=== PATIENT | male | born 1960 | race Caucasian/White ===

== ENCOUNTER 2024-08-03 11:59 | Inpatient (IN) | payer SELFPAY ==
[2024-08-03] VITALS (11 sets, daily range): BP systolic 134–168; BP diastolic 80–90; PULSE 62–128; RESP 16–24; TEMP 36.7–37.1; O2SAT 80–93; BMI 30.5
--- NOTE | 2024-08-03 12:01 | XR_ITS ---
WS: [id number] Portable AP upright chest, 08/03/2024 Clinical Data: cough Comparison: None. Findings: No nodules, masses or effusions are seen. The heart is normal. The pulmonary vascularity is not increased. No pneumonia or pneumothorax is seen. The diaphragms are flattened. XR/XR chest 1V portable [id number] Impression: Hyperinflation.
--- NOTE | 2024-08-03 12:39 | ED_ITS ---
HPI - URI/Sore Throat 2 General: Chief Complaint: Upper Respiratory Infection Stated Complaint: cchest conjestion Time Seen by Provider: 08/03/24 12:24 History of Present Illness: 64-year-old male presents emergency room with chest congestion minimally productive cough. He is increasingly short of breath on arrival here his oxygen sat is 88% on room air he is requiring 3 L to maintain his oxygen saturations. Associated symptoms: Deny abdominal pain, chills, chest pain or fever(s) Related Data Previous Rx's Medication Instructions Recorded albuterol sulfate 90 mcg/actuation 1 inh inhalation Q6H PRN shortness 08/06/24 breath activated powder inhaler of breath #1 ea amoxicillin 875 mg-potassium 1 tab PO BID #8 tabs 08/06/24 clavulanate 125 mg tablet fluticasone furoate 50 1 inh inhalation DAILY 30 days #60 08/06/24 mcg-vilanterol 25 mcg/dose ea inhalation powder (Breo Ellipta) levofloxacin 750 mg tablet 750 mg PO Q24H 4 days #4 tabs 08/06/24 prednisone 10 mg tablet See Taper PO DIRECTED #42 tabs 08/06/24 Allergies Allergy/AdvReac Type Severity Reaction Status Date / Time No Known Allergies Allergy Verified 08/03/24 12:13 Review of Systems 2 Const: Denies: fever(s) or chills Card: Denies: chest pain Resp: Reports: dyspnea, productive cough, wheezing and chest congestion GI: Denies: abdominal pain : Denies: dysuria, urinary frequency or urinary urgency Musc: Denies: neck pain or back pain Skin/Breast: Denies: rash PFSH ED 2 PFSH: Medical History (Updated 08/09/24 @ 14:18 by Percy Quinones DO) Alcohol abuse, daily use Social History (Updated 08/03/24 @ 17:05 by Raghavendra Pyle MD) Smoking and tobacco/nicotine status: current every day tobacco/nicotine user Alcohol intake: current Substance/Drug Use: never Caregiver/support person: Yes Lives independently: Yes Household members: family Housing: House Current occupational status: employed Physical Exam 2 Const: GENERAL APPEARANCE: cooperative ORIENTATION/CONSCIOUSNESS: Yes awake, Yes oriented to person, Yes oriented to place and Yes oriented to time HENMT: COMMON NORMALS: normocephalic, atraumatic and hearing grossly normal bilaterally HEAD & SCALP: normocephalic and atraumatic Resp: COMMON NORMALS: normal respiratory effort, No retractions, No use of accessory muscles and clear to auscultation bilaterally AUSCULTATION: clear to auscultation bilaterally Cardio: COMMON NORMALS: regular rate, regular rhythm and No murmurs present (Cardio) RATE: regular rate RHYTHM: regular rhythm GI: COMMON NORMALS: Soft to palpation and No hepatosplenomegaly present A USCULTATION: Yes normoactive bowel sounds PALPATION: Yes Soft to palpation, No Tenderness to palpation present (GI), No Guarding due to palpation present (GI) and Yes No hepatosplenomegaly present Extremity: COMMON NORMALS: normal to inspection, capillary refill normal, no clubbing, cyanosis or edema, no calf tenderness and no pedal edema Neuro: SENSORIUM/ORIENTATION: Yes oriented to person, Yes oriented to place and Yes oriented to time Skin: COMMON NORMALS: no rashes or lesions noted GENERAL SKIN EXAM: no rashes or lesions noted Course 2 Vital Signs: Vital signs: Vital Signs Temperature 97.8 F 08/06/24 13:59 Pulse Rate 87 08/06/24 13:59 Respiratory Rate 16 08/06/24 13:59 Blood Pressure 135/60 08/06/24 13:59 Pulse Oximetry 92 08/06/24 13:59 Oxygen Delivery Me thod Nasal Cannula 08/06/24 11:53 Oxygen Flow Rate 3 08/06/24 11:53 Fraction of Inspir ed Oxygen 35 08/05/24 03:55 MDM - URI/Sore Throat Medical Decision Making Sepsis. Acute hypoxic hypercapnic respiratory failure will admit to hospitalist antibiotics started. Discussed with hospitalist orders written. Additionally patient has regular alcohol use will need to be monitored closely for withdrawal Medical Records I reviewed the patient's medical records. Lab Data I reviewed the patient's lab results. 08/06/24 02:28 08/06/24 02:28 Radiology Impressions Chest X-Ray 08/03/24 12:01 Impression: Hyperinflation. Chest CTA 08/03/24 15:08 IMPRESSION: 1. No pulmonary embolism. 2. Extensive centrilobular nodules and tree-in-bud airspace disease are all lobes with more focal increasing consolidation at the RIGHT lung base. Most consistent with infection, consider fungal and bacterial infections and Mycobacterium avium. 3. Mediastinal and hilar reactive lymphadenopathy. Laboratory Results WBC 21.58 10^3/uL (3.29-11.43) H 08/03/24 12:55 RBC 5.33 10^6/uL (3.85-5.65) 08/03/24 12:55 Hgb 15.20 g/dL (11.27-16.99) 08/03/24 12:55 Hct 47.9 % (37-53) 08/03/24 12:55 MCV 89.9 fl (82-101) 08/03/24 12:55 MCH 28.5 pg (27-33) 08/03/24 12:55 MCHC 31.7 g/dL (30-55) 08/03/24 12:55 RDW 13.7 % (12.1-15.1) 08/03/24 12:55 Plt Count 327 10^3/cmm (157-399) 08/03/24 12:55 MPV 11.0 fL (7.4-10.4) H 08/03/24 12:55 Neut % (Auto) 82.8 % 08/03/24 12:55 Lymph % (Auto) 6.1 % 08/03/24 12:55 [place] % (Auto) 9.9 % 08/03/24 12:55 Eos % (Auto) 0.2 % 08/03/24 12:55 Baso % (Auto) 0.4 % 08/03/24 12:55 Neut # (Auto) 17.86 10^3/uL (1.8-7.7) H 08/03/24 12:55 Lymph # (Auto) 1.3 10^3/uL (0.8-4.8) 08/03/24 12:55 [place] # (Auto) 2.1 10^3/uL (0.2-0.9) H 08/03/24 12:55 Eos # (Auto) 0.1 10^3/uL (0.0-0.8) 08/03/24 12:55 Baso # (Auto) 0.1 10^3/uL (0.0-0.1) 08/03/24 12:55 Nucleated RBC % (auto) 0.1 % 08/03/24 12:55 Nucleated RBCs # 0.0 /100WBC 08/03/24 12:55 D-Dimer 1.02 ug/mLFEU (0-0.59) H 08/03/24 13:16 Specimen Type Arterial 08/03/24 12:49 Sample Site Radial, left 08/03/24 12:49 ABG pH 7.40 (7.35-7.45) 08/03/24 12:49 ABG pCO2 60.8 mmHg (35-45) H* 08/03/24 12:49 ABG pO2 59.7 mmHg (80.0-100.0) L 08/03/24 12:49 ABG HCO3 37.9 mmol/L (22-26) H 08/03/24 12:49 ABG O2 Saturation 89.6 08/03/24 12:49 ABG Base Excess 10.3 mmol/L (-2.0-2.0) H 08/03/24 12:49 [place] Test Pos 08/03/24 12:49 A-a O2 Gradient 2.2 mmHg (5-10) L 08/03/24 12:49 Hematocrit 47.0 % (42-52) 08/03/24 12:49 Hgb O2 Saturation 87.7 % (95-100) L 08/03/24 12:49 Carboxyhemoglobin 1.2 %THgb (0.4-20.1) 08/03/24 12:49 Methemoglobin 0.9 % (0.4-1.5) 08/03/24 12:49 Total Hemoglobin 15.3 g/dL (14-18) 08/03/24 12:49 Sodium 142.0 mmol/L (131-143) 08/03/24 12:49 Potassium 3.6 mmol/L (3.5-5.0) 08/03/24 12:49 Glucose 108.0 mg/dL (70-115) 08/03/24 12:49 Ionized Calcium 1.2 mmol/L (1.1-1.4) 08/03/24 12:49 O2 Delivery Device Nc 08/03/24 12:49 O2 Liters/Min 4.0 % 08/03/24 12:49 Extruding Press Adjuster ID [place] 08/03/24 12:49 Sodium 139 mmol/L (136-145) 08/03/24 12:55 Potassium 3.9 mmol/L (3.5-5.1) 08/03/24 12:55 Chloride 95 mmol/L (98-107) L 08/03/24 12:55 Carbon Dioxide 34 mmol/L (22-29) H 08/03/24 12:55 Anion Gap 13.9 (5-19) 08/03/24 12:55 BUN 11 mg/dL (8-23) 08/03/24 12:55 Creatinine 1.1 mg/dL (0.7-1.2) 08/03/24 12:55 GFR Calculation 67.6 mL/min (90-130) L 08/03/24 12:55 Glucose 113 mg/dL (65-115) 08/03/24 12:55 Calculated Osmolality 288 mOsm/kg (285-295) 08/03/24 12:55 Lactic Acid 1.5 mmol/L (0.5-2.2) 08/03/24 12:55 Calcium 9.6 mg/dL (8.5-10.5) 08/03/24 12:55 Iron 20 ug/dL (59-158) L 08/03/24 13:16 TIBC 176 mcg/dl 08/03/24 13:16 % Saturation 11.3 % (20-50) L 08/03/24 13:16 Unsat Iron Binding 156 ug/dL (112-347) 08/03/24 13:16 Total Bilirubin 0.4 mg/dL (0.15-1.2) 08/03/24 12:55 AST 39 U/L (0-40) 08/03/24 12:55 ALT 57 U/L (0-41) H 08/03/24 12:55 Alkaline Phosphatase 198 U/L (40-130) H 08/03/24 12:55 Creatine Kinase 142 U/L (39-308) 08/03/24 12:55 NT-Pro-B Natriuret Pep 3046 pg/mL (0-125) H 08/03/24 12:55 Total Protein 7.7 g/dL (6.6-8.7) 08/03/24 12:55 Albumin 3.4 g/dL (3.5-5.2) L 08/03/24 12:55 Globulin 4.3 g/dL (1.3-4.6) 08/03/24 12:55 Vitamin B12 1065 pg/mL (232-1245) 08/03/24 13:16 Procalcitonin 1.65 ng/mL (0-0.5) H 08/03/24 13:30 TSH 0.21 uIU/mL (0.27-4.20) L 08/03/24 13:16 Urine Color Yellow (Yellow) 08/03/24 14:04 Urine Appearance Clear (CLEAR) 08/03/24 14:04 Urine pH 7.0 (5-7) 08/03/24 14:04 Ur Specific [place] 1.028 (1.005-1.030) 08/03/24 14:04 Urine Protein 3+ (Negative) A 08/03/24 14:04 Urine Glucose (UA) Negative (Normal) 08/03/24 14:04 Urine Ketones Trace (Negative) 08/03/24 14:04 Urine Blood Negative (Negative) 08/03/24 14:04 Urine Nitrate Negative (Negative) 08/03/24 14:04 Urine Bilirubin Negative (Negative) 08/03/24 14:04 Urine Urobilinogen 2.0 mg/dL (Negative) H 08/03/24 14:04 Ur Leukocyte Esterase Negative (Negative) 08/03/24 14:04 Urine RBC 3-5 /hpf (0-2) 08/03/24 14:04 Urine WBC 0-5 /hpf (0-5) 08/03/24 14:04 Ur Squamous Epith Cells 0-5 /hpf (0-5) 08/03/24 14:04 Amorphous Sediment Not Reportable 08/03/24 14:04 Urine Bacteria None seen /hpf (NONE) 08/03/24 14:04 Hyaline Casts 3.30 /lpf 08/03/24 14:04 Urine Opiates Screen Negative ng/mL (Negative) 08/03/24 14:04 Ur Barbiturates Screen Negative ng/mL (Negative) 08/03/24 14:04 Ur Phencyclidine Scrn Negative ng/mL (Negative) 08/03/24 14:04 Ur Amphetamines Screen Negative ng/mL (Negative) 08/03/24 14:04 U Benzodiazepines Scrn Negative ng/mL (Negative) 08/03/24 14:04 Urine Cocaine Screen Negative ng/mL (Negative) 08/03/24 14:04 U Marijuana (THC) Screen Positive ng/mL (Negative) H 08/03/24 14:04 Coronavirus (PCR) Negative (Negative) 08/03/24 12:30 Influenza A (PCR) Negative (Negative) 08/03/24 12:30 Influenza Type B (PCR) Negative (Negative) 08/03/24 12:30 RSV (PCR) Negative (Negative) 08/03/24 12:30 All radiology interpretation(s) finalized by discharge Discharge Plan Discharge Patient Disposition: Admitted As Inpatient Admit Provider: Raghavendra Pyle Clinical Impression: Sepsis, Acute respiratory failure with hypoxia and hypercapnia, Alcohol abuse, daily use Condition: Stable Discharge Diet: Cardiac Discharge Activity: Resume usual activity and Increase activity as tolerated Coding Level of Care Code ED Foam Fabricator for Esvin Umana
[2024-08-03 13:00] LABS: Alveolar-Arterial Oxygen Gradi 2.2 mmHg (5-10); Base Excess ABG 10.3 mmol/L (-2.0-2.0); Blood Gas Allen Test Pos; Blood Gas Operator Identificat WA; Blood Gas Sample Site Radial, left; Blood Gas Sample Type Arterial; Carboxyhemoglobin 1.2 %THgb (0.4-20.1); HCO3 ABG 37.9 mmol/L (22-26); HGB O2 Sat 87.7 % (95-100); Ionized Calcium Level - ABG 1.2 mmol/L (1.1-1.4); Methemoglobin 0.9 % (0.4-1.5); Oxygen Device NC; Oxygen Saturation ABG 89.6; PO2 ABG 59.7 mmHg (80.0-100.0); Potassium Level - ABG 3.6 mmol/L (3.5-5.0); Total Hemoglobin 15.3 g/dL (14-18)
[2024-08-03 13:01] LABS: ABG PCO2 60.8 mmHg (35-45)
[2024-08-03] MEDS: ipratropium-albuterol 3 mL Neb INHALATION (13:11)
[2024-08-03 13:17] LABS: Covid PCR NEGATIVE (Negative); Influenza A NEGATIVE (Negative); Influenza B NEGATIVE (Negative); Respiratory Syncytial Virus Ce NEGATIVE (Negative)
[2024-08-03 13:21] LABS: Basophils # 0.1 10^3/uL (0.0-0.1); Basophils % 0.4 %; Eosinophils # 0.1 10^3/uL (0.0-0.8); Eosinophils % 0.2 %; Hematocrit 47.9 % (37-53); Lymphocytes # 1.3 10^3/uL (0.8-4.8); Lymphocytes % 6.1 %; Mean Corpuscular HGB Conc 31.7 g/dL (30-55); Mean Corpuscular Hemoglobin 28.5 pg (27-33); Mean Corpuscular Volume 89.9 fl (82-101); Monocytes # 2.1 10^3/uL (0.2-0.9); Monocytes % 9.9 %; Neutrophils # 17.86 10^3/uL (1.8-7.7); Neutrophils % 82.8 %; Nucleated Red Blood Cells % 0.1 %; Platelet Count 327 10^3/cmm (157-399); Red Blood Count 5.33 10^6/uL (3.85-5.65); Red Cell Distribution Width 13.7 % (12.1-15.1); White Blood Count 21.58 10^3/uL (3.29-11.43)
[2024-08-03 13:31] LABS: Lactic Sepsis W/Reflex 1.5 mmol/L (0.5-2.2)
[2024-08-03 13:42] LABS: Alanine Aminotransferase 57 U/L (0-41); Albumin Level 3.4 g/dL (3.5-5.2); Alkaline Phosphatase 198 U/L (40-130); Anion Gap 13.9 (5-19); Aspartate Amino Transferase 39 U/L (0-40); Blood Urea Nitrogen 11 mg/dL (8-23); Calcium 9.6 mg/dL (8.5-10.5); Carbon Dioxide 34 mmol/L (22-29); Chloride 95 mmol/L (98-107); Creatine Phosphokinase 142 U/L (39-308); Creatinine Clr Calc Pharmacy 84.9559; Globulin 4.3 g/dL (1.3-4.6); Glomerular Filtration Rate 67.6 mL/min (90-130); Glucose 113 mg/dL (65-115); NT Pro B Type Natriuretic Pept 3046 pg/mL (0-125); Osmolality Calculated 288 mOsm/kg (285-295); Potassium 3.9 mmol/L (3.5-5.1); Sodium 139 mmol/L (136-145); Total Bilirubin 0.4 mg/dL (0.15-1.2); Total Protein 7.7 g/dL (6.6-8.7)
[2024-08-03] MEDS: dexamethasone 10 mg/mL INJ IM (13:50)
[2024-08-03 14:18] LABS: Bilirubin Urine Negative (Negative); Blood Urine Negative (Negative); Glucose Urine UA Negative (Normal); Ketones Urine Trace (Negative); Leukocyte Esterase Urine Negative (Negative); Nitrate Urine Negative (Negative); Protein Urine 3+ (Negative); Specific Gravity, Urine 1.028 (1.005-1.030); Urine Appearance Clear (CLEAR); Urine Color Yellow (Yellow)
[2024-08-03 14:23] LABS: Add Urine Microscopic? YES; Bacteria Urine None Seen /hpf; Squamous Epithelial Cell Urine 0-5 /hpf (0-5); WBC Urine 0-5 /hpf (0-5)
--- NOTE | 2024-08-03 14:28 | ECG_ITS ---
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 Measurements Intervals [place] Rate: 124 P: 65 [place]: 139 QRS: 31 QRSD: 94 T: 65 QT: 309 QTc: 445 Interpretive Statements SINUS TACHYCARDIA INCOMPLETE RIGHT BUNDLE BRANCH BLOCK [90+ ms QRS DURATION, TERMINAL R IN V1/V2, 40+ ms S IN I/aVL/V4/V5/V6] No previous ECG available for comparison Electronically Signed On 08-06-2024 23:14:02 TIRE CARE MANAGER by Janes King M.D. [id number]
[2024-08-03 14:42] LABS: D Dimer 1.02 ug/mLFEU (0-0.59)
[2024-08-03] MEDS: levofloxacin-dextrose 5 % 750 MG/150 ML PREMIX 100 MG IV (15:03)
--- NOTE | 2024-08-03 15:08 | CT_ITS ---
WS: [id number] CT CHEST ANGIOGRAPHY WITH REFORMATS HISTORY: resp failure TECHNIQUE: Contiguous axial images are obtained through the chest during arterial injection of intrav enous contrast. Images are reconstructed to evaluate the pulmonary arteries. MIP imaging also reviewe d. All CT scans at [facility] use at least one of these dose optimization techniques: automat ed exposure control; mA and/or kV adjustment per patient size (includes targeted exams where dose is matched to clinical indication); or iterative reconstruction. CONTRAST: Omnipaque 350; 100 mL IV. DLP: 865.76 mGy.cm COMPARISON: None available. Study is limited by extensive breathing motion artifact. Good opacification of the pulmonary arteries. No filling defects or pulmonary embolism. Normal size t horacic aorta. No dissection or aneurysm. Heart size is normal. No pericardial or pleural effusions. Hyperinflated lungs. Numerous scattered nodules and tree-in-bud airspace disease throughout both lung s. There is extensive involvement of all lobes with more focal increasing opacification at the RIGHT lung base. Numerous enlarged mediastinal and hilar lymph nodes. RIGHT hilar lymph node 1.7 cm. Subcar inal lymph node 2.6 cm. LEFT hilar lymph node 2.1 cm. Bilateral paratracheal lymph nodes measuring up to 1.7 cm. These lymph nodes are hyperemic and probably reactive. No adrenal mass. Visualized liver and gallbladder are negative. Mild increase in thoracic kyphosis. CT/CT angio chest PE protcl [id number] IMPRESSION: 1. No pulmonary embolism. 2. Extensive centrilobular nodules and tree-in-bud airspace disease are all lo bes with more focal increasing consolidation at the RIGHT lung base. Most consi stent with infection, consider fungal and bacterial infections and Mycobacteriu m avium. 3. Mediastinal and hilar reactive lymphadenopathy.
[2024-08-03 15:21] LABS: Procalcitonin 1.65 ng/mL (0-0.5)
[2024-08-03] MEDS: iohexol 350 mg/mL 500 mL Btl (per mL) IV (15:28)
[2024-08-03 15:43] LABS: Thyroid Stimulating Hormone 0.21 uIU/mL (0.27-4.20)
[2024-08-03] MEDS: FUROsemide 10 mg/mL SDV 4mL 40 MG IVP (16:09)
[2024-08-03] MEDS: metoprolol tartrate 25 mg Tablet PO ×2 (16:09→20:54)
[2024-08-03] MEDS: levalbuterol 0.63 mg/3 mL Neb INHALATION ×2 (16:30→20:07)
[2024-08-03 16:55] LABS: Iron 20 ug/dL (59-158); Percent Saturation 11.3 % (20-50); Total Iron Binding Capacity 176 mcg/dl; Unsaturated Iron Binding 156 ug/dL (112-347)
--- NOTE | 2024-08-03 16:59 | PM.HP ---
Providers/Chief Complaint Admitting Physician: Raghavendra Pyle MD Chief Complaint: cchest conjestion History of Present Illness Pankaj Acosta is a 64 year old male with no signal past medical history, never seen a physician in his life, works at a [employer] shop, daily alcohol use presents to the ER today because of difficulty in breathing which has been getting worse for last 2 weeks associated with cough and expectoration. Patient denies any cold sweats. Shortness of breath get worse on laying flat. Denies any history of chest pain. In the ER he was found to be hypoxic requiring up to 4 L of oxygen supplementation. On presentation he is laying comfortably in bed with head of the bed elevated at 30 degrees, on 4 L saturating 94% with a heart rate of 120 bpm. States his breathing is slightly improved since coming to the hospital. Denies any sick contacts. Review of Systems General: Reports: 10 or more systems reviewed and unremarkable except in HPI and below Const: Denies: fever(s), chills, body aches, change in appetite, change in weight, malaise, night sweats, diaphoresis, change in sleep pattern, daytime sleepiness or snoring Eyes: Denies: change in vision, blurry vision, photophobia, eye discomfort or eye discharge ENMT: Denies: throat pain, enlarged tonsils, hoarseness, mouth pain, oral sores, dry mouth, tinnitus, nasal congestion or post nasal drip Card: Denies: chest pain, palpitations, irregular heart rhythm, edema, swelling of feet/ankles, lightheadedness, syncope, pre-syncope, dyspnea on exertion, orthopnea, leg pain with exertion or acrocyanosis Resp: Denies: dyspnea, productive cough, non-productive cough, wheezing, stridor, pain on inspiration, change in phlegm color, hemoptysis or chest congestion GI: Denies: abdominal pain, nausea, vomiting, hematemesis, coffee ground emesis, dysphagia, heartburn, diarrhea, constipation, bloating, GI cramping, change in bowel habits, pain on defecation, hematochezia or melena : Denies: flank pain, difficulty urinating, dysuria, urinary frequency, urinary urgency, urinary hesitancy, urinary dribbling, difficulty starting urination, change in urine stream, nocturia or hematuria Musc: Denies: neck pain, back pain, extremity pain, joint pain, joint swelling, joint redness, joint stiffness or limited range of motion Neuro: Denies: headache(s), numbness in extremities, weakness in extremities, sensory changes, lack of coordination, difficulty walking, frequent falls, dizziness, vertigo, confusion, Slurred speech present, difficulty communicating thoughts or seizure-like activity Psych: Denies: anxiety, depression, mood swings, panic attacks, hopelessness or irritability Endo: Denies: polyuria, polydipsia, tired all the time, cold intolerance, excessive sweating, flushing or heat intolerance Roger/Lymph: Denies: easy bruising or easy bleeding All/Imm: Denies: tongue swelling, facial swelling or acute wheezing Medications/Allergies Home Medications Medication Instructions Recorded Confirmed Last Taken Type No Known Home Medications 08/03/24 08/03/24 Unknown History Allergies Allergy/AdvReac Type Severity Reaction Status Date / Time No Known Allergies Allergy Verified 08/03/24 12:13 PFSH Acute PFSH: Medical History (Updated 08/03/24 @ 17:03 by Raghavendra Pyle MD) Alcohol abuse, daily use Social History (Updated 08/03/24 @ 17:05 by Raghavendra Pyle MD) Smoking and tobacco/nicotine status: current every day tobacco/nicotine user Alcohol intake: current Substance/Drug Use: never Caregiver/support person: Yes Lives independently: Yes Household members: family Housing: House Current occupational status: employed Vitals/I&O/Wt Last Vital Signs Temp 98.8 F 08/03/24 12:07 Pulse 125 H 08/03/24 16:24 Resp 18 08/03/24 16:24 BP 165/90 08/03/24 14:07 Pulse Ox 92 08/03/24 16:24 O2 Del Method Nasal Cannula 08/03/24 16:24 O2 Flow Rate 4 08/03/24 16:24 Weight last 48 hrs Weight 102.058 kg Physical Exam Narrative: General: No acute distress, AO x3 disheveled, on nasal cannula HEENT: PERRLA, pupils bilaterally equal and reactive Chest: Bilateral bronchial breath sounds all over lung shay occasional rhonchi CVS: S1-S2 regular, no murmurs, tachycardia, no gallops, no rubs Abdomen: Soft, nontender, no organomegaly, bowel sounds present Neuro: No focal deficits, no facial deformity, AO x3, power 5/5 in all limbs Data 08/03/24 12:55 08/03/24 12:55 Micro: Microbiology 08/03/24 13:21 Blood Culture - Preliminary Blood SPECIMEN COLLECTED 08/03/24 13:16 Blood Culture - Preliminary Blood SPECIMEN COLLECTED A&P Assessment and plan (1) Sepsis: SIRS: Tachycardic, Febrile, Leukocytosis Source: Pneumonia End organ damage: Acute respiratory failure Lactic acid within normal limits Patient did not receive full 30 mL/kg BW due to concerns of possible congestive heart failure Monitor blood pressures. Keep mean artery pressure 65 mmHg. Check blood culture, urine culture, MRSA swab, procalcitonin, respiratory viral panel, bacterial antigen. De-escalate antibiotics as per culture results. (2) Acute respiratory failure with hypoxia and hypercapnia: No past diagnosis of COPD though patient has not seen a physician ever. Found to have hypercapnia with CO2 of 60 with a normal pH and a pCO2 of 60 as well on ABG today. Most likely chronic hypercapnia. Also has contraction alkalosis. Oxygen supplementation keeping saturation over 88%. Solu-Medrol 40 mg Q6 hourly. Pulmicort twice daily, ipratropium, Xopenex every 4 hour Follow-up D-dimer. If elevated will plan for CTA chest to rule out PE given significant tachycardia. Check sputum culture, respiratory viral panel, LDH. Empirically start patient on IV vancomycin and Zosyn for now as patient seems critically sick. Will de-escalate as per culture history. If MRSA swab is negative will discontinue vancomycin. Concern for possible mild congestive heart failure. IV Lasix 40 mg one-time. Fluid restriction to less than 1500 cc. Will follow-up echocardiogram. Follow-up troponin cycled. (3) Alcohol abuse, daily use: Consumes alcohol daily. States he has never had alcohol withdrawal. [facility] protocol. Plan Tachycardia: Most likely in setting of sepsis. Check thyroid panel. Depending on thyroid panel will plan for free T3 and free T4. Check echocardiogram. Transaminitis: Most likely in setting of daily alcohol use. Check hepatitis panel, HIV, urine drug screen. Full code Regular diet Protonix OPD prophylaxis Heparin 5000 Q8 hourly for DVT prophylaxis. Attestations Medical Necessity Statement*: Admission for more than 2 midnights for management of acute hypoxic and hypercapnic respiratory failure in a patient with concerns for undiagnosed COPD, sepsis with concerns for community-acquired pneumonia Diagnoses Sepsis A41.9 Acute respiratory failure with hypoxia and hypercapnia J96.01; J96.02 Alcohol abuse, daily use F10.10
[2024-08-03 17:10] LABS: Vitamin B12 1065 pg/mL (232-1245)
--- NOTE | 2024-08-03 17:53 | ECG_ITS ---
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 Measurements Intervals [place] Rate: 89 P: 64 MD: 139 QRS: 40 QRSD: 100 T: 55 QT: 373 QTc: 456 Interpretive Statements SINUS RHYTHM POSSIBLE RIGHT VENTRICULAR CONDUCTION DELAY [RSR (QR) IN V1/V2] MODERATE T-WAVE ABNORMALITY, CONSIDER ANTERIOR ISCHEMIA [-0.1+ mV T-WAVE IN V3/V4] Compared to ECG 08/03/2024 12:35:25 T-wave abnormality now present Possible ischemia now present Sinus tachycardia no longer present Incomplete right bundle-branch block no longer present Electronically Signed On 08-06-2024 23:11:51 MEDICAL SECRETARY TEACHER by Janes King M.D. [id number]
[2024-08-03] MEDS: vancomycin 3,000 MG/600 ML PIGGYBACK 200 MG IV (18:09)
[2024-08-03] MEDS: methylPREDNISolone sod succ 40 mg/mL INJ IVP ×2 (18:12→23:33)
[2024-08-03] MEDS: thiamine 100 mg/mL 2mL SDV IM (18:12)
[2024-08-03] MEDS: enoxaparin 40 mg/0.4 mL Syringe SUBCUT (18:12)
[2024-08-03 19:59] LABS: MRSA PCR OZH (swab) NOT DETECTED (Negative)
[2024-08-03] MEDS: budesonide 0.5 mg/2 mL Neb INHALATION (20:07)
[2024-08-03] MEDS: ipratropium 0.5 mg/2.5 mL Neb INHALATION (20:07)
[2024-08-03 20:17] LABS: HIV 1 & 2 Antibody Non-Reactive (Non-Reactiv); HIV 1 & 2 Antigen Non-Reactive (Non-Reactiv)
--- NOTE | 2024-08-03 20:18 | ECG_ITS ---
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 Measurements Intervals [place] Rate: 101 P: 67 [place]: 130 QRS: 24 QRSD: 102 T: 60 QT: 359 QTc: 466 Interpretive Statements SINUS TACHYCARDIA POSSIBLE RIGHT VENTRICULAR CONDUCTION DELAY [RSR (QR) IN V1/V2] Compared to ECG 08/03/2024 17:53:48 Sinus rhythm no longer present T-wave abnormality no longer present Possible ischemia no longer present Electronically Signed On 08-06-2024 23:31:51 PRINT BINDING AND FINISHING WORKER by Janes King M.D. [id number]
[2024-08-03 20:37] LABS: Troponin(5th) Baseline 29 ng/L (0-15)
[2024-08-03 20:41] LABS: Amphetamines Screen Urine Negative (Negative); Barbiturates Screen Urine Negative (Negative); Benzodiazepines Screen Urine Negative (Negative); Cocaine Screen Urine Negative (Negative); Opiate Screen Urine Negative (Negative); PCP Screen Urine Negative (Negative); THC Screen Urine Positive (Negative)
[2024-08-03 21:15] LABS: Free T4 Free Thyroxine 0.93 ng/dL (0.82-1.77); Hepatitis A Antibody IgM Non-Reactive (Nonreactive); Hepatitis B Core AB, Total Non-Reactive (Nonreactive); Hepatitis B Surface AB 5.4 (11.5-1000); Hepatitis B Surface Antigen Non-Reactive (Nonreactive); Hepatitis C Virus Antibody Non-Reactive (Nonreactive); Lactate Dehydrogenase 205 U/L (135-225); T3 Free 2.5 PG/ML (2.0-4.4)
--- NOTE | 2024-08-03 23:09 | ECG_ITS ---
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 Measurements Intervals [place] Rate: 97 P: 70 [place]: 137 QRS: 18 QRSD: 101 T: 57 QT: 359 QTc: 457 Interpretive Statements SINUS RHYTHM INCOMPLETE RIGHT BUNDLE BRANCH BLOCK [90+ ms QRS DURATION, TERMINAL R IN V1/V2, 40+ ms S IN I/aVL/V4/V5/V6] WARNING: DATA QUALITY MAY AFFECT INTERPRETATION Compared to ECG 08/03/2024 20:18:11 Incomplete right bundle-branch block now present Sinus tachycardia no longer present Electronically Signed On 08-06-2024 23:31:33 FINANCIAL SERVICES ASSOCIATE by Janes King M.D. [id number]
[2024-08-03] MEDS: piperacillin-tazobactam 3.375 GM in sodium chloride 0.9% (plus) 50 ML IV (23:33)
[2024-08-04] VITALS (21 sets, daily range): BP systolic 115–149; BP diastolic 71–92; PULSE 75–97; RESP 16–26; TEMP 36.4–37.4; O2SAT 88–96
[2024-08-04 01:46] LABS: Basophils % 0.2 %; Hematocrit 47.2 % (37-53); Lymphocytes # 0.7 10^3/uL (0.8-4.8); Lymphocytes % 3.9 %; Mean Corpuscular HGB Conc 31.1 g/dL (30-55); Mean Corpuscular Hemoglobin 28.8 pg (27-33); Mean Corpuscular Volume 92.4 fl (82-101); Mean Platelet Volume 10.5 fL (7.4-10.4); Monocytes # 0.3 10^3/uL (0.2-0.9); Monocytes % 1.6 %; Neutrophils # 16.69 10^3/uL (1.8-7.7); Neutrophils % 93.7 %; Nucleated Red Blood Cells % 0.2 %; Platelet Count 338 10^3/cmm (157-399); Red Blood Count 5.11 10^6/uL (3.85-5.65); Red Cell Distribution Width 14.1 % (12.1-15.1); White Blood Count 17.81 10^3/uL (3.29-11.43)
[2024-08-04] MEDS: levalbuterol 0.63 mg/3 mL Neb INHALATION ×5 (01:53→19:22)
[2024-08-04] MEDS: ipratropium 0.5 mg/2.5 mL Neb INHALATION ×5 (01:53→19:22)
[2024-08-04 02:01] LABS: Estmated Average Glucose 126
[2024-08-04 02:05] LABS: Troponin 5 6HR 19.16 ng/L (0-15)
[2024-08-04 02:06] LABS: Cholesterol 112 mg/dL (0-200); HDL Cholesterol 32 mg/dL (60-100); LDL Cholesterol Calculated 55 mg/dL (50-129); LDL HDL Ratio 1.72 RATIO (0.00-3.22); Triglycerides 123 mg/dL (0-150)
[2024-08-04 02:07] LABS: Alanine Aminotransferase 59 U/L (0-41); Albumin Level 3.4 g/dL (3.5-5.2); Alkaline Phosphatase 187 U/L (40-130); Anion Gap 11.6 (5-19); Aspartate Amino Transferase 35 U/L (0-40); Blood Urea Nitrogen 19 mg/dL (8-23); Calcium 9.3 mg/dL (8.5-10.5); Carbon Dioxide 38 mmol/L (22-29); Chloride 97 mmol/L (98-107); Creatinine Clr Calc Pharmacy 71.8858; Globulin 4.3 g/dL (1.3-4.6); Glomerular Filtration Rate 55.8 mL/min (90-130); Glucose 162 mg/dL (65-115); Magnesium 2.4 mg/dL (1.7-2.3); Osmolality Calculated 300 mOsm/kg (285-295); Phosphorus 3.8 mg/dL (2.5-4.5); Potassium 4.6 mmol/L (3.5-5.1); Sodium 142 mmol/L (136-145); Total Bilirubin 0.2 mg/dL (0.15-1.2); Total Protein 7.7 g/dL (6.6-8.7)
[2024-08-04 02:09] LABS: Troponin 5 6HR Delta -9.84 ng/L (0-12)
[2024-08-04 02:13] LABS: Procalcitonin 1.56 ng/mL (0-0.5)
[2024-08-04 02:27] LABS: Folate Level 12.4 ng/mL (4.5-32.2)
[2024-08-04 04:04] LABS: ABG PCO2 89.6 mmHg (35-45); ABG PH Result 7.26 (7.35-7.45); Base Excess ABG 8.3 mmol/L (-2.0-2.0); Blood Gas Sample Site Brachial, right; Blood Gas Sample Type Arterial; Carboxyhemoglobin 1.2 %THgb (0.4-20.1); HCO3 ABG 39.7 mmol/L (22-26); HGB O2 Sat 87.3 % (95-100); Ionized Calcium Level - ABG 1.3 mmol/L (1.1-1.4); Methemoglobin 1.3 % (0.4-1.5); Oxygen Device OXY MASK; Oxygen Saturation ABG 89.5; PO2 ABG 64.5 mmHg (80.0-100.0); Potassium Level - ABG 4.5 mmol/L (3.5-5.0); Total Hemoglobin 15.3 g/dL (14-18)
[2024-08-04] MEDS: piperacillin-tazobactam 3.375 GM in sodium chloride 0.9% (plus) 50 ML IV ×3 (04:34→20:02)
[2024-08-04] MEDS: methylPREDNISolone sod succ 40 mg/mL INJ IVP ×4 (04:35→23:18)
[2024-08-04] MEDS: metoprolol tartrate 25 mg Tablet PO ×2 (07:41→20:04)
[2024-08-04] MEDS: folic acid 1 mg Tablet PO (07:41)
[2024-08-04] MEDS: multivitamin therapeutic Tablet 1 TAB PO (07:41)
[2024-08-04] MEDS: pantoprazole DR 40 mg Tablet PO (07:41)
[2024-08-04] MEDS: thiamine 100 mg Tablet PO (07:41)
[2024-08-04] MEDS: budesonide 0.5 mg/2 mL Neb INHALATION ×2 (09:31→19:22)
[2024-08-04 09:46] LABS: ABG PH Result 7.27 (7.35-7.45); Alveolar-Arterial Oxygen Gradi 10.9 mmHg (5-10); Base Excess ABG 10.2 mmol/L (-2.0-2.0); Blood Gas Allen Test Pos; Blood Gas Operator Identificat GD; Blood Gas Sample Site Radial, right; Blood Gas Sample Type Arterial; Carboxyhemoglobin 0.8 %THgb (0.4-20.1); HCO3 ABG 41.6 mmol/L (22-26); HGB O2 Sat 95.9 % (95-100); Ionized Calcium Level - ABG 1.3 mmol/L (1.1-1.4); Methemoglobin 1.4 % (0.4-1.5); Oxygen Device NC; Oxygen Saturation ABG 98.1; PO2 FiO2 Ratio Arterial Blood 281; Potassium Level - ABG 4.2 mmol/L (3.5-5.0)
[2024-08-04 09:48] LABS: ABG PCO2 91.7 mmHg (35-45)
--- NOTE | 2024-08-04 11:57 | USCV_ITS ---
Pankaj Acosta Age: 64 Gender: M : 1960 Exam Date: 08/04/2024 13:01 Ordering Phys: Raghavendra Pyle MD Technologist: [place] [facility] [place]: chest pain BP: 134 / 74 HR: 91 Rhythm: Sinus Technical Quality: Adequate MEASUREMENTS (Male / Female) Normal Values 2D ECHO LV Diastolic Diameter PLAX 5.1 cm 4.2 - 5.9 / 3.9 - 5.3 cm IVS Diastolic Thickness 1.3 cm 0.6 - 1.0 / 0.6 - 0.9 cm IVS Systolic Thickness 1.6 cm LVPW Diastolic Thickness 1.5 cm 0.6 - 1.0 / 0.6 - 0.9 cm LVPW Systolic Thickness 1.7 cm LVOT Diameter 2.1 cm LV Ejection Fraction 2D Teich 49.5 % LV Ejection Fraction MOD 4C 61.4 % LV Ejection Fraction MOD 2C 57.6 % LV Ejection Fraction 2C AL 58.7 % LA Diameter 3.5 cm RA Systolic Volume 4C AL 43.3 ml RA Systolic Volume 4C MOD 38.4 ml Aorta at Sinotubular Diameter 2.5 cm M-MODE LA Ao Ratio MM 1.3 AV Cusp Separation MM 3.2 cm DOPPLER AV Peak Velocity 149.0 cm/s LVOT Peak Velocity 95.0 cm/s AV Area Cont Eq vti 2.6 cm squared AV Area Cont Eq pk 2.2 cm squared MV Peak Velocity 101.0 cm/s MV Area PHT 8.8 cm squared Mitral E to A Ratio 0.9 TV Peak Velocity 129.5 cm/s TR Peak Velocity 130.0 cm/s TR Peak Gradient 6.8 mmHg TV Peak E Velocity 85.0 cm/s PV Peak Velocity 133.0 cm/s FINDINGS Left Ventricle Left ventricle is normal in size. LV systolic function is borderline normal with EF of 50-55%. No regional wall motion abnormalities are seen. Right Ventricle Grossly normal Right Atrium Normal in size Left Atrium Normal in size Mitral Valve Structurally normal mitral valve. Trace mitral regurgitation. Aortic Valve Grossly normal. No significant stenosis or regurgitation. Tricuspid Valve Insufficient TR jet to calculate RVSP Pulmonic Valve Not well visualized Pericardium Normal Aorta Normal in size IVC Not well visualized CONCLUSIONS LV systolic function is borderline normal with EF 50 -55%. Trace mitral regurgitation No comparison studies are available. Janes King MD (Electronically Signed) Final Date: 07 August 2024 11:20 S
[2024-08-04] MEDS: azithromycin 250 mg Tablet 500 MG PO (12:17)
--- NOTE | 2024-08-04 14:49 | P.PN_ITS ---
Subjective 2 Subjective: Patient overnight required higher oxygen supplementation was ABG was done which showed respiratory acidosis with hypercapnia for which she was placed on BiPAP ventilation. Today morning examination patient laying comfortably on BiPAP, wakes up to verbal stimulus and able to complete conversation. Asking for food. BiPAP was removed and was placed on oxygen through nasal cannula. Otherwise patient denies any new complaints. Asking for when he can be discharged at the earliest because he is concerned about hospital bill. We discussed right now we should continue to continued on his health because he is critically sick requiring high oxygen supplementation. For now he is agreeable to stay. Vitals/I&O/Wt Last Vital Signs Temp 97.9 F 08/04/24 11:32 Pulse 88 08/04/24 13:06 Resp 20 H 08/04/24 12:24 BP 144/92 08/04/24 11:32 Pulse Ox 90 08/04/24 13:06 O2 Del Method Nasal Cannula 08/04/24 12:24 O2 Flow Rate 5 08/04/24 12:24 FiO2 35 08/04/24 13:06 08/03/24 08/04/24 08/04/24 22:59 06:59 14:59 Intake Total 970 / 970 150 / 1120 1000 / 1000 Output Total 450 / 450 Balance 520 / 520 150 / 670 1000 / 1000 Weight last 48 hrs Weight 98.43 kg Weight 97.795 kg Weight 102.058 kg Weight 102.058 kg Physical Exam 2 Narrative: General: No acute distress, AO x3 disheveled, on nasal cannula HEENT: PERRLA, pupils bilaterally equal and reactive Chest: Bilateral bronchial breath sounds all over lung shay occasional rhonchi CVS: S1-S2 regular, no murmurs, tachycardia, no gallops, no rubs Abdomen: Soft, nontender, no organomegaly, bowel sounds present Neuro: No focal deficits, no facial deformity, AO x3, power 5/5 in all limbs Data 08/04/24 01:25 08/04/24 01:25 Micro: Microbiology 08/03/24 14:04 Bacterial Antigens - Final Urine Kidney 08/03/24 13:21 Blood Culture - Preliminary Blood SPECIMEN COLLECTED 08/03/24 13:16 Blood Culture - Preliminary Blood SPECIMEN COLLECTED A&P Assessment and plan (1) Sepsis: SIRS: Tachycardic, Febrile, Leukocytosis Source: Pneumonia End organ damage: Acute respiratory failure Lactic acid within normal limits Patient did not receive full 30 mL/kg BW due to concerns of possible congestive heart failure Monitor blood pressures. Keep mean artery pressure 65 mmHg. Follow-up blood culture, MRSA swab negative, procalcitonin trend, Negative respiratory viral panel, bacterial antigen. De-escalate antibiotics as per culture results. (2) Acute respiratory failure with hypoxia and hypercapnia: No past diagnosis of COPD though patient has not seen a physician ever. Found to have hypercapnia with CO2 of 60 with a normal pH and a pCO2 of 60 on ABG on admission. Overnight had worsening hypercapnia. Most likely in setting of over oxygenation. Will try to maintain oxygen supplementation on 88%. Wean oxygen supplementation accordingly. Solu-Medrol 40 mg Q6 hourly. Pulmicort twice daily, ipratropium, Xopenex every [address] with no concerns of PE. Concern for possible consolidation in right lung base. Follow-up sputum culture when available, appreciate LDH within normal limits, follow-up various fungal studies for coccidiomycosis, cryptococcus, Fungitell, histoplasma, QuantiFERON. Continue with empiric Zosyn for now. Add azithromycin 500 mg oral daily to cover for atypical infections. Received 40 mg of IV Lasix yesterday. Have developed mild EMERITA today. Hold off on any further Lasix. Fluid restriction to less than 1500 cc. Check echocardiogram. Negative troponin cycle (3) Alcohol abuse, daily use: Consumes alcohol daily. States he has never had alcohol withdrawal. CIWA protocol. (4) Tachycardia: Heart rate better now. Continue with metoprolol 25 mg twice daily. (5) EMERITA (acute kidney injury): Creatinine up to 1.3. Most likely in setting of mild dehydration. Hold off on further Lasix. Patient's oral intake limited as he is on BiPAP. Continue to monitor BMP daily. No electrolyte abnormality for now. Does have baseline contraction alkalosis with slight worsening today. Repeat BMP in afternoon. (6) COPD (chronic obstructive pulmonary disease): Undiagnosed. Appreciate normal pH with pCO2 of 60 on ABG, contraction alkalosis. Will benefit from pulmonary function test as an outpatient. (7) Right lower lobe pneumonia: (8) Respiratory acidosis: Plan Transaminitis: Most likely in setting of daily alcohol use. Negative hepatitis panel, HIV, urine drug screen. Full code Regular diet Protonix OPD prophylaxis Lovenox for DVT prophylaxis. Attestations 2 Medical Necessity Statement*: Requires further hospitalization for management of acute on chronic hypoxic and hypercapnic respiratory failure in setting of right lower lobe pneumonia, undiagnosed COPD, acute kidney injury Diagnoses Sepsis A41.9 Acute respiratory failure with hypoxia and hypercapnia J96.01; J96.02 Alcohol abuse, daily use F10.10 Tachycardia R00.0 EMERITA (acute kidney injury) N17.9 COPD (chronic obstructive pulmonary disease) J44.9 Right lower lobe pneumonia J18.9 Respiratory acidosis E87.29
[2024-08-04 17:11] LABS: Adenovirus Not Detected (NOT DETECT); Chlamydia Pneumoniae Not Detected (NOT DETECT); Coronavirus 229E,HKU1,NL63,OC4 Not Detected (NOT DETECT); Human Metapneumovirus Not Detected (NOT DETECT); Human Rhinovirus/Enterovirus Not Detected (NOT DETECT); Influenza A Not Detected (NOT DETECT); Influenza A H1 Not Detected (NOT DETECT); Influenza A H1-2009 Not Detected (NOT DETECT); Influenza A H3 Not Detected (NOT DETECT); Influenza B Not Detected (NOT DETECT); Mycoplasma Pneumoniae Not Detected (NOT DETECT); Parainfluenza Virus Type 1 Not Detected (NOT DETECT); Parainfluenza Virus Type 2 Not Detected (NOT DETECT); Parainfluenza Virus Type 3 Not Detected (NOT DETECT); Parainfluenza Virus Type 4 Not Detected (NOT DETECT); Respiratory Syncytial Virus A Not Detected (NOT DETECT); Respiratory Syncytial Virus B Not Detected (NOT DETECT); SARS-COV-2 Not Detected (NOT DETECT)
[2024-08-04] MEDS: enoxaparin 40 mg/0.4 mL Syringe SUBCUT (17:33)
[2024-08-04 17:45] LABS: Blood Urea Nitrogen 30 mg/dL (8-23); Calcium 9.6 mg/dL (8.5-10.5); Carbon Dioxide 37 mmol/L (22-29); Chloride 97 mmol/L (98-107); Glomerular Filtration Rate 67.6 mL/min (90-130); Glucose 166 mg/dL (65-115); Osmolality Calculated 304 mOsm/kg (285-295); Sodium 142 mmol/L (136-145)
[2024-08-04 17:46] LABS: Alveolar-Arterial Oxygen Gradi 1.7 mmHg (5-10); Arterial Blood Gas Hematocrit 43.7 % (42-52); Base Excess ABG 12.9 mmol/L (-2.0-2.0); Blood Gas Allen Test Pos; Blood Gas Operator Identificat WALCI; Blood Gas Sample Site Radial, left; Blood Gas Sample Type Arterial; Carboxyhemoglobin 0.3 %THgb (0.4-20.1); HCO3 ABG 40.8 mmol/L (22-26); HGB O2 Sat 88.7 % (95-100); Ionized Calcium Level - ABG 1.2 mmol/L (1.1-1.4); Methemoglobin 0.8 % (0.4-1.5); Oxygen Device NC; Oxygen Saturation ABG 89.7; PO2 ABG 58.9 mmHg (80.0-100.0); Potassium Level - ABG 3.7 mmol/L (3.5-5.0); Total Hemoglobin 14.3 g/dL (14-18)
[2024-08-04 17:49] LABS: ABG PCO2 65.6 mmHg (35-45)
--- NOTE | 2024-08-04 17:53 | PC.NURSE ---
Report called to Gloria in [facility]
--- NOTE | 2024-08-04 18:30 | PC.NURSE ---
received in to room 107 from med-surg at 1800.report received.pt is alert and oriented x 4.denies pain at present.sr on monitor.o2 sat 88% on 5l nc.oriented to room environment.instructed to notify staff for any difficulty breathing,pain,if needs to get up...or for any concerns at all.pt verb understanding of instructions.
[2024-08-05] VITALS (20 sets, daily range): BP systolic 126–135; BP diastolic 60–85; PULSE 73–91; RESP 15–26; TEMP 36.4–37.3; O2SAT 89–96
[2024-08-05] MEDS: levalbuterol 0.63 mg/3 mL Neb INHALATION ×6 (00:47→20:49)
[2024-08-05] MEDS: ipratropium 0.5 mg/2.5 mL Neb INHALATION ×6 (00:47→20:49)
[2024-08-05 02:29] LABS: Basophils # 0.1 10^3/uL (0.0-0.1); Basophils % 0.3 %; Hematocrit 43.3 % (37-53); Lymphocytes % 4.3 %; Mean Corpuscular HGB Conc 30.7 g/dL (30-55); Mean Corpuscular Hemoglobin 28.4 pg (27-33); Mean Corpuscular Volume 92.3 fl (82-101); Mean Platelet Volume 10.2 fL (7.4-10.4); Monocytes # 0.9 10^3/uL (0.2-0.9); Monocytes % 3.8 %; Neutrophils # 21.59 10^3/uL (1.8-7.7); Neutrophils % 90.8 %; Nucleated Red Blood Cells # 0.1 /100WBC; Nucleated Red Blood Cells % 0.2 %; Platelet Count 346 10^3/cmm (157-399); Red Blood Count 4.69 10^6/uL (3.85-5.65); Red Cell Distribution Width 13.9 % (12.1-15.1); White Blood Count 23.77 10^3/uL (3.29-11.43)
[2024-08-05 02:55] LABS: Procalcitonin 0.98 ng/mL (0-0.5)
[2024-08-05 03:00] LABS: Alanine Aminotransferase 43 U/L (0-41); Albumin Level 3.2 g/dL (3.5-5.2); Alkaline Phosphatase 170 U/L (40-130); Anion Gap 10.3 (5-19); Aspartate Amino Transferase 22 U/L (0-40); Blood Urea Nitrogen 34 mg/dL (8-23); Calcium 9.1 mg/dL (8.5-10.5); Carbon Dioxide 37 mmol/L (22-29); Chloride 98 mmol/L (98-107); Creatinine Clr Calc Pharmacy 76.5829; Globulin 3.1 g/dL (1.3-4.6); Glomerular Filtration Rate 61.1 mL/min (90-130); Glucose 143 mg/dL (65-115); Osmolality Calculated 302 mOsm/kg (285-295); Potassium 4.3 mmol/L (3.5-5.1); Sodium 141 mmol/L (136-145); Total Bilirubin 0.2 mg/dL (0.15-1.2); Total Protein 6.3 g/dL (6.6-8.7)
[2024-08-05] MEDS: piperacillin-tazobactam 3.375 GM in sodium chloride 0.9% (plus) 50 ML IV ×3 (04:59→20:11)
[2024-08-05] MEDS: methylPREDNISolone sod succ 40 mg/mL INJ IVP ×4 (04:59→20:08)
[2024-08-05 05:41] LABS: ABG PH Result 7.37 (7.35-7.45); Arterial Blood Gas Hematocrit 41.9 % (42-52); Base Excess ABG 11.4 mmol/L (-2.0-2.0); Blood Gas Allen Test Pos; Blood Gas Sample Site Radial, right; Blood Gas Sample Type Arterial; Carboxyhemoglobin < 0.3 %THgb (0.4-20.1); HCO3 ABG 39.7 mmol/L (22-26); HGB O2 Sat 94.7 % (95-100); Ionized Calcium Level - ABG 1.2 mmol/L (1.1-1.4); Methemoglobin 0.9 % (0.4-1.5); Oxygen Device NC; Oxygen Saturation ABG 95.7; PO2 ABG 88.9 mmHg (80.0-100.0); Potassium Level - ABG 3.9 mmol/L (3.5-5.0); Total Hemoglobin 13.7 g/dL (14-18)
[2024-08-05 05:42] LABS: ABG PCO2 68.7 mmHg (35-45)
[2024-08-05] MEDS: budesonide 0.5 mg/2 mL Neb INHALATION ×2 (07:41→20:49)
[2024-08-05] MEDS: folic acid 1 mg Tablet PO (09:04)
[2024-08-05] MEDS: metoprolol tartrate 25 mg Tablet PO ×2 (09:04→20:08)
[2024-08-05] MEDS: thiamine 100 mg Tablet PO (09:04)
[2024-08-05] MEDS: multivitamin therapeutic Tablet 1 TAB PO (09:04)
[2024-08-05] MEDS: azithromycin 250 mg Tablet 500 MG PO (09:04)
[2024-08-05] MEDS: pantoprazole DR 40 mg Tablet PO (09:04)
--- NOTE | 2024-08-05 11:39 | P.PN_ITS ---
Subjective 2 Subjective: No acute vents overnight. Today morning examination patient is awake and alert. On 5 L saturating more than 95%. Denies any nausea, bleeding, headache. States he is feeling better. Agreeable to stay in the hospital. Heart rate is better controlled. Vitals/I&O/Wt Last Vital Signs Temp 98.7 F 08/05/24 07:57 Pulse 82 08/05/24 11:19 Resp 20 H 08/05/24 11:09 BP 132/66 08/05/24 07:57 Pulse Ox 93 08/05/24 11:09 O2 Del Method Nasal Cannula 08/05/24 11:09 O2 Flow Rate 4 08/05/24 11:09 FiO2 35 08/05/24 03:55 08/04/24 08/05/24 08/05/24 22:59 06:59 14:59 Intake Total 420 / 1420 390 / 1810 170 / 170 Output Total 400 / 400 Balance 420 / 1420 -10 / 1410 170 / 170 Weight last 48 hrs Weight 99.7 kg Weight 99.7 kg Weight 98.43 kg Weight 97.795 kg Weight 102.058 kg Weight 102.058 kg Physical Exam 2 Narrative: General: No acute distress, AO x3 disheveled, on nasal cannula HEENT: PERRLA, pupils bilaterally equal and reactive Chest: Bilateral bronchial breath sounds all over lung shay occasional rhonchi CVS: S1-S2 regular, no murmurs, tachycardia, no gallops, no rubs Abdomen: Soft, nontender, no organomegaly, bowel sounds present Neuro: No focal deficits, no facial deformity, AO x3, power 5/5 in all limbs Data 08/05/24 02:06 08/05/24 02:06 Micro: Microbiology 08/03/24 13:21 Blood Culture - Preliminary Blood NEGATIVE TO DATE 08/03/24 13:16 Blood Culture - Preliminary Blood NEGATIVE TO DATE A&P Assessment and plan (1) Sepsis: SIRS: Tachycardic, Febrile, Leukocytosis Source: Pneumonia End organ damage: Acute respiratory failure Lactic acid within normal limits Patient did not receive full 30 mL/kg BW due to concerns of possible congestive heart failure Monitor blood pressures. Keep mean artery pressure 65 mmHg. Follow-up blood culture, MRSA swab negative, procalcitonin trend, Negative respiratory viral panel, bacterial antigen. De-escalate antibiotics as per culture results. (2) Acute respiratory failure with hypoxia and hypercapnia: No past diagnosis of COPD though patient has not seen a physician ever. Found to have hypercapnia with CO2 of 60 with a normal pH and a pCO2 of 60 on ABG on admission. Overnight had worsening hypercapnia. Most likely in setting of over oxygenation. Will try to maintain oxygen supplementation on 88%. Wean oxygen supplementation accordingly. Solu-Medrol 40 mg Q6 hourly. Pulmicort twice daily, ipratropium, Xopenex every [address] with no concerns of PE. Concern for possible consolidation in right lung base. Follow-up sputum culture when available, appreciate LDH within normal limits, follow-up various fungal studies for coccidiomycosis, cryptococcus, Fungitell, histoplasma, QuantiFERON. Continue with empiric Zosyn for now. Add azithromycin 500 mg oral daily to cover for atypical infections. Received 40 mg of IV Lasix yesterday. Have developed mild EMERITA today. Hold off on any further Lasix. Fluid restriction to less than 1500 cc. Check echocardiogram. Negative troponin cycle (3) Alcohol abuse, daily use: Consumes alcohol daily. States he has never had alcohol withdrawal. [facility] protocol. (4) Tachycardia: Heart rate better now. Continue with metoprolol 25 mg twice daily. (5) EMERITA (acute kidney injury): Creatinine up to 1.3. Most likely in setting of mild dehydration. Hold off on further Lasix. Patient's oral intake limited as he is on BiPAP. Continue to monitor BMP daily. No electrolyte abnormality for now. Does have baseline contraction alkalosis with slight worsening today. Repeat BMP in afternoon. (6) COPD (chronic obstructive pulmonary disease): Undiagnosed. Appreciate normal pH with pCO2 of 60 on ABG, contraction alkalosis. Will benefit from pulmonary function test as an outpatient. (7) Right lower lobe pneumonia: (8) Respiratory acidosis: Plan Transaminitis: Most likely in setting of daily alcohol use. Negative hepatitis panel, HIV, urine drug screen. Full code Regular diet Protonix OPD prophylaxis Lovenox for DVT prophylaxis. Plan for the day: Continue with broad-spectrum antibiotics for now. Follow-up sputum culture when available. Blood cultures so far negative. Most likely acute on chronic hypoxic and hypercapnic respiratory failure in setting of undiagnosed obstructive and restrictive lung disease. 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 Will benefit from pulmonary function test. Oxygen supplementation keeping saturation over 86 to 88%. I think chronically he lives in low 80s to high 70s. pH normal today with a pCO2 of 69. Wean Solu-Medrol to 40 mg 3 times daily. Will plan to wean further within next 24 hours. Follow-up echocardiogram. Discharge plan: Can plan to discharge in next 24 to 48 hours back home. Patient will need home O2 evaluation prior to discharge. Patient would benefit from a PCP. He is agreeable to follow-up as an outpatient. Attestations 2 Medical Necessity Statement*: Was further hospitalization for management of acute on chronic hypoxic and hypercapnic respiratory failure in setting of undiagnosed COPD, community- acquired pneumonia Diagnoses Sepsis A41.9 Acute respiratory failure with hypoxia and hypercapnia J96.01; J96.02 Alcohol abuse, daily use F10.10 Tachycardia R00.0 EMERITA (acute kidney injury) N17.9 COPD (chronic obstructive pulmonary disease) J44.9 Right lower lobe pneumonia J18.9 Respiratory acidosis E87.29
--- NOTE | 2024-08-05 15:09 | PC.NURSE ---
off unit for a PFT.
[2024-08-05] MEDS: enoxaparin 40 mg/0.4 mL Syringe SUBCUT (18:22)
[2024-08-06] VITALS (8 sets, daily range): BP systolic 124–152; BP diastolic 60–78; PULSE 75–87; RESP 16–32; TEMP 36.6–37.1; O2SAT 86–93
[2024-08-06 03:06] LABS: Basophils # 0.1 10^3/uL (0.0-0.1); Basophils % 0.2 %; Hematocrit 45.1 % (37-53); Lymphocytes # 0.9 10^3/uL (0.8-4.8); Lymphocytes % 3.7 %; Mean Corpuscular Hemoglobin 28.7 pg (27-33); Mean Corpuscular Volume 92.6 fl (82-101); Mean Platelet Volume 10.5 fL (7.4-10.4); Monocytes # 0.7 10^3/uL (0.2-0.9); Monocytes % 2.9 %; Neutrophils # 22.14 10^3/uL (1.8-7.7); Neutrophils % 91.9 %; Nucleated Red Blood Cells % 0.1 %; Platelet Count 327 10^3/cmm (157-399); Red Blood Count 4.87 10^6/uL (3.85-5.65)
[2024-08-06 03:31] LABS: Alanine Aminotransferase 57 U/L (0-41); Albumin Level 2.9 g/dL (3.5-5.2); Alkaline Phosphatase 158 U/L (40-130); Aspartate Amino Transferase 35 U/L (0-40); Blood Urea Nitrogen 31 mg/dL (8-23); Calcium 8.9 mg/dL (8.5-10.5); Carbon Dioxide 34 mmol/L (22-29); Chloride 98 mmol/L (98-107); Creatinine Clr Calc Pharmacy 77.0356; Globulin 3.6 g/dL (1.3-4.6); Glomerular Filtration Rate 61.1 mL/min (90-130); Glucose 129 mg/dL (65-115); Osmolality Calculated 298 mOsm/kg (285-295); Sodium 140 mmol/L (136-145); Total Bilirubin 0.2 mg/dL (0.15-1.2); Total Protein 6.5 g/dL (6.6-8.7)
[2024-08-06 03:33] LABS: Anion Gap 12.5 (5-19); Potassium 4.5 mmol/L (3.5-5.1)
[2024-08-06] MEDS: piperacillin-tazobactam 3.375 GM in sodium chloride 0.9% (plus) 50 ML IV (03:49)
[2024-08-06] MEDS: levalbuterol 0.63 mg/3 mL Neb INHALATION (08:05)
[2024-08-06] MEDS: budesonide 0.5 mg/2 mL Neb INHALATION (08:05)
[2024-08-06] MEDS: ipratropium 0.5 mg/2.5 mL Neb INHALATION (08:06)
[2024-08-06] MEDS: thiamine 100 mg Tablet PO (09:49)
[2024-08-06] MEDS: methylPREDNISolone sod succ 40 mg/mL INJ IVP (09:49)
[2024-08-06] MEDS: folic acid 1 mg Tablet PO (09:49)
[2024-08-06] MEDS: pantoprazole DR 40 mg Tablet PO (09:49)
[2024-08-06] MEDS: azithromycin 250 mg Tablet 500 MG PO (09:50)
[2024-08-06] MEDS: multivitamin therapeutic Tablet 1 TAB PO (09:50)
[2024-08-06] MEDS: metoprolol tartrate 25 mg Tablet PO (09:52)
--- NOTE | 2024-08-08 16:11 | PM.DCS ---
Discharge Providers Date of Admission: 08/03/24 16:38 Date of Discharge: August 08, 2024 Attending Provider at Admission: Raghavendra Pyle MD Attending Provider at Discharge: Raghavendra Pyle MD Diagnoses at Discharge Discharge Diagnosis (1) Sepsis: Status: Acute (2) Acute respiratory failure with hypoxia and hypercapnia: Status: Acute (3) Alcohol abuse, daily use: Status: Acute (4) Tachycardia: Status: Acute (5) EMERITA (acute kidney injury): Status: Acute (6) COPD (chronic obstructive pulmonary disease): Status: Acute (7) Right lower lobe pneumonia: Status: Acute (8) Respiratory acidosis: Status: Acute Reason for Visit Reason for Visit: [facility] Hospital Course Pankaj Acosta is a 64 year old male with no signal past medical history, never seen a physician in his life, works at a [employer], daily alcohol use presents to the ER today because of difficulty in breathing which has been getting worse for last 2 weeks associated with cough and expectoration. Patient denies any cold sweats. Shortness of breath get worse on laying flat. Denies any history of chest pain. In the ER he was found to be hypoxic requiring up to 4 L of oxygen supplementation. On presentation he is laying comfortably in bed with head of the bed elevated at 30 degrees, on 4 L saturating 94% with a heart rate of 120 bpm. States his breathing is slightly improved since coming to the hospital. Denies any sick contacts. Patient was admitted to the hospital further evaluation and management of acute on chronic hypoxic and hypercapnic respiratory failure due to undiagnosed COPD. He was started on treatment with nebulization treatment and systemic steroids. Patient responded well to the treatment and has been on 2 L of oxygen supplementation both at rest on exertion. Home O2 evaluation has been done prior to discharge. Patient was counseled detail again smoking, following up with PCP, taking medications regularly along with oxygen supplementation and possible need of pulmonary function test as an outpatient. Medications has been provided to him at bedside. All the questions were answered. He is been discharged in hemodynamically stable condition. Physical Exam Narrative: General: No acute distress, AO x3 disheveled, on nasal cannula HEENT: PERRLA, pupils bilaterally equal and reactive Chest: Bilateral bronchial breath sounds all over lung shay occasional rhonchi CVS: S1-S2 regular, no murmurs, tachycardia, no gallops, no rubs Abdomen: Soft, nontender, no organomegaly, bowel sounds present Neuro: No focal deficits, no facial deformity, AO x3, power 5/5 in all limbs Discharge Data Studies Completed and Pending Completed Studies During Hospitalization Category Date Time Status CTA chest [CT angio chest PE protcl [id number]] Stat Cat Scan 08/03/24 15:08 Completed CXRP [XR chest 1V portable [id number]] Stat Exams 08/03/24 12:01 Completed CV. echo complete* [id number] Routine Ultrasound 08/04/24 11:57 Completed Pending at discharge Category Date Time Status Aspergillus AG,EIA,Serum Stat Lab 08/03/24 18:56 Received Coccidioides AB CF Serum Stat Lab 08/03/24 18:56 Received Cryptococcal Antigen w/ Reflex Stat Lab 08/03/24 18:56 Received Fungitell Glucan Assay (Blood) Routine Lab 08/03/24 18:56 Received Histoplasma Antibody Immunodif Routine Lab 08/03/24 18:56 Received Histoplasma Quantitative AG Routine Lab 08/03/24 14:04 Received Rfapaqahrmf-BP-Wiro Plus Routine Lab 08/03/24 18:56 Received Radiology Impressions Chest X-Ray 08/03/24 12:01 Impression: Hyperinflation. Chest CTA 08/03/24 15:08 IMPRESSION: 1. No pulmonary embolism. 2. Extensive centrilobular nodules and tree-in-bud airspace disease are all lobes with more focal increasing consolidation at the RIGHT lung base. Most consistent with infection, consider fungal and bacterial infections and Mycobacterium avium. 3. Mediastinal and hilar reactive lymphadenopathy. Echocardiogram: CONCLUSIONS LV systolic function is borderline normal with EF 50 -55%. Trace mitral regurgitation No comparison studies are available. Janes King MD (Electronically Signed) Final Date: 07 August 2024 Laboratory Results WBC 24.10 10^3/uL (3.29-11.43) H 08/06/24 02:28 RBC 4.87 10^6/uL (3.85-5.65) 08/06/24 02:28 Hgb 14.00 g/dL (11.27-16.99) 08/06/24 02:28 Hct 45.1 % (37-53) 08/06/24 02:28 MCV 92.6 fl (82-101) 08/06/24 02:28 MCH 28.7 pg (27-33) 08/06/24 02: MCHC 31.0 g/dL (30-55) 08/06/24 02: RDW 14.0 % (12.1-15.1) 08/06/24 02:28 Plt Count 327 10^3/cmm (157-399) 08/06/24 02: MPV 10.5 fL (7.4-10.4) H 08/06/24 02:28 Neut % (Auto) 91.9 % 08/06/24 02: Lymph % (Auto) 3.7 % 08/06/24 02: [place] % (Auto) 2.9 % 08/06/24 02: Eos % (Auto) 0.0 % 08/06/24 02: Baso % (Auto) 0.2 % 08/06/24 02: Neut # (Auto) 22.14 10^3/uL (1.8-7.7) H 08/06/24 02:28 Lymph # (Auto) 0.9 10^3/uL (0.8-4.8) 08/06/24 02:28 [place] # (Auto) 0.7 10^3/uL (0.2-0.9) 08/06/24 02:28 Eos # (Auto) 0.0 10^3/uL (0.0-0.8) 08/06/24 02: Baso # (Auto) 0.1 10^3/uL (0.0-0.1) 08/06/24 02: Nucleated RBC % (auto) 0.1 % 08/06/24 02:28 Nucleated RBCs # 0.0 /100WBC 08/06/24 02:28 D-Dimer 1.02 ug/mLFEU (0-0.59) H 08/03/24 13:16 Specimen Type Arterial 08/05/24 05:30 Sample Site Radial, right 08/05/24 05:30 ABG pH 7.37 (7.35-7.45) 08/05/24 05:30 ABG pCO2 68.7 mmHg (35-45) H* 08/05/24 05:30 ABG pO2 88.9 mmHg (80.0-100.0) 08/05/24 05:30 ABG PO2/FiO2 Ratio 281 08/04/24 09:30 ABG HCO3 39.7 mmol/L (22-26) H 08/05/24 05:30 ABG O2 Saturation 95.7 08/05/24 05:30 ABG Base Excess 11.4 mmol/L (-2.0-2.0) H 08/05/24 05:30 [place] Test Pos 08/05/24 05:30 A-a O2 Gradient 0.0 mmHg (5-10) L 08/05/24 05:30 Hematocrit 41.9 % (42-52) L 08/05/24 05:30 Hgb O2 Saturation 94.7 % (95-100) L 08/05/24 05:30 Carboxyhemoglobin < 0.3 %THgb (0.4-20.1) L 08/05/24 05:30 Methemoglobin 0.9 % (0.4-1.5) 08/05/24 05:30 Total Hemoglobin 13.7 g/dL (14-18) L 08/05/24 05:30 Sodium 143.0 mmol/L (131-143) 08/05/24 05:30 Potassium 3.9 mmol/L (3.5-5.0) 08/05/24 05:30 Glucose 152.0 mg/dL (70-115) H 08/05/24 05:30 Ionized Calcium 1.2 mmol/L (1.1-1.4) 08/05/24 05:30 O2 Delivery Device Nc 08/05/24 05:30 O2 Liters/Min 5.0 % 08/05/24 05:30 FiO2 44.0 % 08/04/24 09:30 Draw Machine Operator ID [email or web address] 08/05/24 05:30 Sodium 140 mmol/L (136-145) 08/06/24 02:28 Potassium 4.5 mmol/L (3.5-5.1) 08/06/24 02:28 Chloride 98 mmol/L (98-107) 08/06/24 02:28 Carbon Dioxide 34 mmol/L (22-29) H 08/06/24 02:28 Anion Gap 12.5 (5-19) 08/06/24 02:28 BUN 31 mg/dL (8-23) H 08/06/24 02:28 Creatinine 1.2 mg/dL (0.7-1.2) 08/06/24 02:28 GFR Calculation 61.1 mL/min (90-130) L 08/06/24 02:28 Glucose 129 mg/dL (65-115) H 08/06/24 02:28 Estimat Average Glucose 126 08/04/24 01: Hemoglobin A1c 6.0 % (4.0-6.0) 08/04/24 01: Calculated Osmolality 298 mOsm/kg (285-295) H 08/06/24 02:28 Lactic Acid 1.5 mmol/L (0.5-2.2) 08/03/24 12:55 Calcium 8.9 mg/dL (8.5-10.5) 08/06/24 02:28 Phosphorus 3.8 mg/dL (2.5-4.5) 08/04/24 01: Magnesium 2.4 mg/dL (1.7-2.3) H 08/04/24 01: Iron 20 ug/dL (59-158) L 08/03/24 13:16 TIBC 176 mcg/dl 08/03/24 13:16 % Saturation 11.3 % (20-50) L 08/03/24 13:16 Unsat Iron Binding 156 ug/dL (112-347) 08/03/24 13:16 Total Bilirubin 0.2 mg/dL (0.15-1.2) 08/06/24 02:28 AST 35 U/L (0-40) 08/06/24 02:28 ALT 57 U/L (0-41) H 08/06/24 02:28 Alkaline Phosphatase 158 U/L (40-130) H 08/06/24 02:28 Lactate Dehydrogenase 205 U/L (135-225) 08/03/24 18:56 Creatine Kinase 142 U/L (39-308) 08/03/24 12:55 Troponin T Baseline 29 ng/L (0-15) H 08/03/24 18:56 Troponin T 120 Minute 22.50 ng/L (0-15) H 08/03/24 21:29 Delta Troponin T -6.50 ABS# (0-10) L 08/03/24 21:29 Troponin T Hi Sens 6Hr 19.16 ng/L (0-15) H 08/04/24 01:25 Troponin T Hi Sens 6Hr Delta -9.84 ng/L (0-12) L 08/04/24 01:25 NT-Pro-B Natriuret Pep Cancelled 08/03/24 18:56 Total Protein 6.5 g/dL (6.6-8.7) L 08/06/24 02:28 Albumin 2.9 g/dL (3.5-5.2) L 08/06/24 02:28 Globulin 3.6 g/dL (1.3-4.6) 08/06/24 02:28 Triglycerides 123 mg/dL (0-150) 08/04/24 01: Cholesterol 112 mg/dL (0-200) 08/04/24 01: LDL Cholesterol, Calc 55 mg/dL (50-129) 08/04/24 01: HDL Cholesterol 32 mg/dL (60-100) L 08/04/24 01: LDL/HDL Ratio 1.72 RATIO (0.00-3.22) 08/04/24 01: Cholesterol/HDL Ratio 3.50 mg/dL (1.0-5.00) 08/04/24 01: Vitamin B12 1065 pg/mL (232-1245) 08/03/24 13:16 Folate 12.4 ng/mL (4.5-32.2) 08/04/24 01: Procalcitonin 0.98 ng/mL (0-0.5) H 08/05/24 02:06 TSH 0.21 uIU/mL (0.27-4.20) L 08/03/24 13:16 Free T4 0.93 ng/dL (0.82-1.77) 08/03/24 18:56 Free T3 2.5 PG/ML (2.0-4.4) 08/03/24 18:56 Urine Color Yellow (Yellow) 08/03/24 14:04 Urine Appearance Clear (CLEAR) 08/03/24 14:04 Urine pH 7.0 (5-7) 08/03/24 14:04 Ur Specific [place] 1.028 (1.005-1.030) 08/03/24 14:04 Urine Protein 3+ (Negative) A 08/03/24 14:04 Urine Glucose (UA) Negative (Normal) 08/03/24 14:04 Urine Ketones Trace (Negative) 08/03/24 14:04 Urine Blood Negative (Negative) 08/03/24 14:04 Urine Nitrate Negative (Negative) 08/03/24 14:04 Urine Bilirubin Negative (Negative) 08/03/24 14:04 Urine Urobilinogen 2.0 mg/dL (Negative) H 08/03/24 14:04 Ur Leukocyte Esterase Negative (Negative) 08/03/24 14:04 Urine RBC 3-5 /hpf (0-2) 08/03/24 14:04 Urine WBC 0-5 /hpf (0-5) 08/03/24 14:04 Ur Squamous Epith Cells 0-5 /hpf (0-5) 08/03/24 14:04 Amorphous Sediment Not Reportable 08/03/24 14:04 Urine Bacteria None seen /hpf (NONE) 08/03/24 14:04 Hyaline Casts 3.30 /lpf 08/03/24 14:04 Nasal MRSA (PCR) Not detected (Negative) 08/03/24 18:07 Urine Opiates Screen Negative ng/mL (Negative) 08/03/24 14:04 Ur Barbiturates Screen Negative ng/mL (Negative) 08/03/24 14:04 Ur Phencyclidine Scrn Negative ng/mL (Negative) 08/03/24 14:04 Ur Amphetamines Screen Negative ng/mL (Negative) 08/03/24 14:04 U Benzodiazepines Scrn Negative ng/mL (Negative) 08/03/24 14:04 Urine Cocaine Screen Negative ng/mL (Negative) 08/03/24 14:04 U Marijuana (THC) Screen Positive ng/mL (Negative) H 08/03/24 14:04 Adenovirus (PCR) Not detected (NOT DETECT) 08/04/24 15:10 C. pneumoniae DNA (PCR) Not detected (NOT DETECT) 08/04/24 15:10 Coronavirus (PCR) Negative (Negative) 08/03/24 12:30 Coronavirus 229E (PCR) Not detected (NOT DETECT) 08/04/24 15:10 Hepatitis A IgM Ab Non-reactive (Nonreactive) 08/03/24 18:56 Hep Bs Antigen Non-reactive (Nonreactive) 08/03/24 18:56 Hep Bs Antibody 5.4 (11.5-1000) L 08/03/24 18:56 Hep B Core Total Ab Non-reactive (Nonreactive) 08/03/24 18:56 Hepatitis C Antibody Non-reactive (Nonreactive) 08/03/24 18:56 HIV 1&2 Ab & HIV 1 Ag Non-reactive (Non-Reactiv) 08/03/24 18:56 HIV 1&2 Antibody Non-reactive (Non-Reactiv) 08/03/24 18:56 Human Metapneumovir PCR Not detected (NOT DETECT) 08/04/24 15:10 Influenza A (H1) PCR Not detected (NOT DETECT) 08/04/24 15:10 Influenza A (PCR) Negative (Negative) 08/03/24 12:30 Influ A (H1/09) PCR Not detected (NOT DETECT) 08/04/24 15:10 Influenza A (H3) PCR Not detected (NOT DETECT) 08/04/24 15:10 Influenza Type A (PCR) Not detected (NOT DETECT) 08/04/24 15:10 Influenza Type B (PCR) Not detected (NOT DETECT) 08/04/24 15:10 M. pneumoniae (PCR) Not detected (NOT DETECT) 08/04/24 15:10 Parainfluenza 1 (PCR) Not detected (NOT DETECT) 08/04/24 15:10 Parainfluenza 2 (PCR) Not detected (NOT DETECT) 08/04/24 15:10 Parainfluenza 3 (PCR) Not detected (NOT DETECT) 08/04/24 15:10 Parainfluenza 4 (PCR) Not detected (NOT DETECT) 08/04/24 15:10 RSV (PCR) Negative (Negative) 08/03/24 12:30 RSV Type A (PCR) Not detected (NOT DETECT) 08/04/24 15:10 RSV Type B (PCR) Not detected (NOT DETECT) 08/04/24 15:10 Entero/Rhino (PCR) Not detected (NOT DETECT) 08/04/24 15:10 SARS-CoV-2 (PCR) Not detected (NOT DETECT) 08/04/24 15:10 Vitals Last Vital Signs Temp 97.8 F 08/06/24 13:59 Pulse 87 08/06/24 13:59 Resp 16 08/06/24 13:59 BP 135/60 08/06/24 13:59 Pulse Ox 92 08/06/24 13:59 O2 Del Method Nasal Cannula 08/06/24 11:53 O2 Flow Rate 3 08/06/24 11:53 FiO2 35 08/05/24 03:55 Discharge Plan Discharge Patient Disposition: Home Condition: Stable Prescriptions: New prednisone 10 mg tablet See Taper PO DIRECTED Qty: 42 0RF Taper: predniSONE 60-10 60 mg Daily for 2 Days and 0 Hour 50 mg Daily for 2 Days and 0 Hour 40 mg Daily for 2 Days and 0 Hour 30 mg Daily for 2 Days and 0 Hour 20 mg Daily for 2 Days and 0 Hour 10 mg Daily for 2 Days and 0 Hour Rx Instructions: see taper instructions levofloxacin 750 mg tablet 750 mg PO Q24H 4 Days Qty: 4 0RF amoxicillin-pot clavulanate 875-125 mg tablet 1 tab PO BID Qty: 8 0RF Breo Ellipta 50-25 mcg/dose blister with device 1 inh inhalation DAILY 30 Days Qty: 60 0RF albuterol sulfate 90 mcg/actuation aerosol powdr breath activated 1 inh inhalation Q6H PRN (Reason: shortness of breath) Qty: 1 0RF Discharge Orders: Discharge Order (Routine); Ordered 08/06/24 Ordered By: Raghavendra Pyle Other Ambulatory Orders: DME: Oxygen (Order) Location: None Selected Ordered By: Raghavendra Pyle Referrals: Catherine Joshi FNP [Referring] - 08/16/24 1:00 pm ([facility] will do sliding scale fee if you will bring in a copy of your 2022 taxes they will be able to adjust the cost of the visit based off of income. You will be expected to pay for services rendered on day of appointment. If you are unable to keep the appointment please call to reschedule or cancel. ) Discharge Diet: Cardiac Discharge Activity: Resume usual activity and Increase activity as tolerated Patient Instructions: Alcohol Abuse, COPD, Albuterol (By breathing), Prednisone (By mouth), Amoxicillin (By mouth), Levofloxacin (By mouth), Fluticasone/Vilanterol (By breathing) (Breo Ellipta), Pneumonitis (DC), Acute Kidney Injury (DC), Metabolic Acidosis (GEN), Complications of Infection (GEN), Tachycardia (GEN), Acute Respiratory Failure (ED), Opioid Safety Activity Restrictions/Additional Instructions: Follow-up with your primary provider on the set appointment. Please continue using your oxygen inhalation treatment as prescribed. Prednisone taper as prescribed. Continue with antibiotic for next 4 days. Discharge Attestations Time Spent in Discharge Care*: greater than 30 min Quality Metrics Clinical Quality Measures [ No reported AMI, CVA or VTE this stay] Coding Level of Care Code Acute Code for Chg Fwd Diagnoses Sepsis A41.9 Acute respiratory failure with hypoxia and hypercapnia J96.01; J96.02 Alcohol abuse, daily use F10.10 Tachycardia R00.0 EMERITA (acute kidney injury) N17.9 COPD (chronic obstructive pulmonary disease) J44.9 Right lower lobe pneumonia J18.9 Respiratory acidosis E87.29
[2024-08-09 02:34] LABS: Fungitell 1-3-B Glucan Assay <31 pg/ml; Interpretation Negative (Negative)
[2024-08-09 12:00] LABS: Quantiferon Mitogen 0.03 IU/mL; Quantiferon Nil 0.01 IU/mL; Quantiferon TB Gold INDETERMINATE (NEGATIVE)
[2024-08-09 18:44] LABS: Aspergillus AG,EIA,Serum NOT DETECTED; Aspergillus Galactomannan Inde <0.50
[2024-08-10 09:35] LABS: Histoplasma Antigen (Quant) NONE DETECTED; Histoplasma Antigen Interpreta NEGATIVE; Histoplasma Antigen Specimen URINE
[2024-08-11 18:09] LABS: Cryptococcal Source SERUM
[2024-08-11 20:10] LABS: Histoplasma capsulatum H Ab NEGATIVE; Histoplasma capsulatum M Ab NEGATIVE
== END 2024-08-06 14:25 | disposition home or self-care (01) | DRG 871 ==
LOC: ER 15:20 → MEDSURG 16:38 → CSU 08-04 18:29
PROVIDERS: Emergency Medicine; Internal Medicine; Student in an Organized Health Care Education/Training Program; Admitting Provider Student in an Organized Health Care Education/Training Program; Emergency Provider Family Medicine; Visit Provider Student in an Organized Health Care Education/Training Program
DX: A41.9 Sepsis, unspecified organism (principal); J18.9 Pneumonia, unspecified organism; J96.02 Acute respiratory failure with hypercapnia; J96.01 Acute respiratory failure with hypoxia; N17.9 Acute kidney failure, unspecified; J44.0 Chronic obstructive pulmonary disease with (acute) lower respiratory infection; E87.29 Other acidosis; R65.20 Severe sepsis without septic shock; F10.10 Alcohol abuse, uncomplicated; F17.200 Nicotine dependence, unspecified, uncomplicated; R74.01 Elevation of levels of liver transaminase levels
CPT/HCPCS: 36415; 36600; 71045; 71275; 80048; 80051; 80053; 80061; 80306; 81001; 82330; 82550; 82607; 82746; 82805; 83036; 83540; 83550; 83605; 83615; 83735; 83880; 84100; 84145; 84439; 84443; 84481; 84484; 85025; 85378; 86403; 86480; 86635; 86698; 86705; 86706; 86709; 86803; 87040; 87305; 87340; 87385; 87449; 87486; 87581; 87633; 87637; 87806; 93005; 93306; 94060; 94640; 94660; 94664; 94760; 96365; 96372; 99285; J1100; J1650; J1940; J1956; J2543; J2919; J3370; J3411; J7614; J7626; J7644; Q0144

== ENCOUNTER 2024-09-23 23:03 | Emergency (ER) | payer SELFPAY ==
[2024-09-23 23:03] VITALS: BP 124/72; PULSE 72; RESP 22; TEMP 36.4; O2SAT 74; BMI 29.8
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
[2024-09-23] MEDS: ondansetron 2 mg/ML SDV 2 mL 4 MG IVP (23:17)
[2024-09-23] MEDS: morphine 4 mg/mL SDV 1 mL IVP (23:18)
[2024-09-23 23:34] LABS: Basophils # 0.1 10^3/uL (0.0-0.1); Basophils % 0.4 %; Eosinophils # 0.2 10^3/uL (0.0-0.8); Hematocrit 45.9 % (37-53); Lymphocytes # 1.7 10^3/uL (0.8-4.8); Lymphocytes % 8.4 %; Mean Corpuscular HGB Conc 31.4 g/dL (30-55); Mean Corpuscular Volume 92.5 fl (82-101); Mean Platelet Volume 10.4 fL (7.4-10.4); Monocytes # 1.5 10^3/uL (0.2-0.9); Monocytes % 7.2 %; Neutrophils # 16.98 10^3/uL (1.8-7.7); Neutrophils % 82.1 %; Nucleated Red Blood Cells % 0 %; Platelet Count 257 10^3/cmm (157-399); Red Blood Count 4.96 10^6/uL (3.85-5.65); Red Cell Distribution Width 15.8 % (12.1-15.1); White Blood Count 20.69 10^3/uL (3.29-11.43)
[2024-09-23] MEDS: iohexol 350 mg/mL 500 mL Btl (per mL) IV (23:38)
[2024-09-23] MEDS: ceFAZolin 2,000 mg SDV 2000 MG IVP (23:46)
[2024-09-23 23:47] VITALS: BP 152/72; PULSE 81; RESP 14; O2SAT 98
[2024-09-24] MEDS: HYDROmorphone 0.5 MG/0.5 ML INJ 1 MG IVP (00:05)
[2024-09-24 00:17] LABS: Alanine Aminotransferase 24 U/L (0-41); Albumin Level 3.8 g/dL (3.5-5.2); Alkaline Phosphatase 112 U/L (40-130); Anion Gap 12.5 (5-19); Aspartate Amino Transferase 30 U/L (0-40); Blood Urea Nitrogen 16 mg/dL (8-23); Calcium 8.8 mg/dL (8.5-10.5); Carbon Dioxide 30 mmol/L (22-29); Chloride 100 mmol/L (98-107); Creatinine Clr Calc Pharmacy 71.1394; Globulin 3.2 g/dL (1.3-4.6); Glomerular Filtration Rate 55.8 mL/min (90-130); Glucose 187 mg/dL (65-115); Osmolality Calculated 294 mOsm/kg (285-295); Potassium 3.5 mmol/L (3.5-5.1); Sodium 139 mmol/L (136-145); Total Bilirubin 0.2 mg/dL (0.15-1.2)
[2024-09-24 00:27] VITALS: BP 133/72; PULSE 90; RESP 20; O2SAT 92
[2024-09-24 00:48] VITALS: BP 151/76; PULSE 95; RESP 18; O2SAT 87
[2024-09-24 00:55] VITALS: PULSE 97; RESP 22; O2SAT 91
[2024-09-24] MEDS: ipratropium-albuterol 3 mL Neb INHALATION (00:57)
[2024-09-24 01:00] VITALS: PULSE 98; RESP 18; O2SAT 91
[2024-09-24 01:12] VITALS: BP 154/76; PULSE 98; RESP 18; O2SAT 90
== END 2024-09-24 01:19 | disposition short-term general hospital (02) ==
PROVIDERS: Emergency Provider Emergency Medicine
DX: S22.42XA Multiple fractures of ribs, left side, initial encounter for closed fracture (principal); S22.20XA Unspecified fracture of sternum, initial encounter for closed fracture; S42.301A Unspecified fracture of shaft of humerus, right arm, initial encounter for closed fracture; Z72.0 Tobacco use; X37.1XXA Tornado, initial encounter
CPT/HCPCS: 36415; 70450; 70486; 71045; 71260; 72125; 73060; 74177; 80053; 85025; 94640; 96374; 96375; 99285; 99291; J0690; J1171; J2270; J2405; J9999

== ENCOUNTER 2024-10-05 22:23 | Emergency (ER) | payer SELFPAY ==
[2024-10-05 22:34] VITALS: BP 141/73; PULSE 90; RESP 18; TEMP 36.9; O2SAT 90; BMI 28.5
[2024-10-05 23:44] VITALS: BP 136/65; PULSE 92; RESP 22; O2SAT 92
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
[2024-10-06 00:34] LABS: Hematocrit 33.6 % (37-53); Mean Corpuscular HGB Conc 30.7 g/dL (30-55); Mean Corpuscular Hemoglobin 27.8 pg (27-33); Mean Corpuscular Volume 90.8 fl (82-101); Mean Platelet Volume 9.5 fL (7.4-10.4); Platelet Count 461 10^3/cmm (157-399); Red Cell Distribution Width 15.4 % (12.1-15.1); White Blood Count 15.23 10^3/uL (3.29-11.43)
[2024-10-06 00:58] LABS: Absolute Eosinophils 0.3 10^3/cmm (0.0-0.7); Absolute Segmented Neutrophil 11.7 10/cmm (1.6-7.1); Eosinophils 2 %; Lymphocytes 17 %; Monocytes Absolute 0.6 10^3/cmm (0.1-0.6); Segmented Neutrophils 77 %; Total Cells Counted 100 (0-100)
[2024-10-06 00:59] LABS: Platelet Estimate Increased (Normal)
[2024-10-06 01:00] LABS: Alanine Aminotransferase 25 U/L (0-41); Albumin Level 3.4 g/dL (3.5-5.2); Alkaline Phosphatase 185 U/L (40-130); Anion Gap 10.6 (5-19); Aspartate Amino Transferase 20 U/L (0-40); Blood Urea Nitrogen 17 mg/dL (8-23); Calcium 8.7 mg/dL (8.5-10.5); Carbon Dioxide 31 mmol/L (22-29); Chloride 102 mmol/L (98-107); Creatinine Clr Calc Pharmacy 82.3099; Globulin 3.4 g/dL (1.3-4.6); Glomerular Filtration Rate 67.6 mL/min (90-130); Glucose 112 mg/dL (65-115); NT Pro B Type Natriuretic Pept 97 pg/mL (0-125); Osmolality Calculated 290 mOsm/kg (285-295); Potassium 4.6 mmol/L (3.5-5.1); Sodium 139 mmol/L (136-145); Total Bilirubin 0.4 mg/dL (0.15-1.2); Total Protein 6.8 g/dL (6.6-8.7)
[2024-10-06] MEDS: HYDROcodone-acetaminophen 5-325 mg Tablet 1 TAB PO (01:22)
[2024-10-06 01:23] VITALS: BP 155/77; PULSE 94; RESP 16; O2SAT 92
[2024-10-06 02:34] VITALS: BP 126/72; PULSE 93; RESP 24; O2SAT 91
--- NOTE | 2024-10-06 23:46 | USR_ITS ---
PROCEDURE INFORMATION: Exam: US Duplex Left Lower Extremity Veins, Limited Exam date and time: 10/06/2024 12:14 AM Age: 64 years old Clinical indication: Edema, localized; Lower extremity, bilateral; Additional info: R/O dvt TECHNIQUE: Imaging protocol: Real-time duplex ultrasound of the left extremity with 2-D pickering scale, color Doppler flow and spectral waveform analysis including responses to compression and other maneuvers (when performed) with image documentation. Limited exam focused on the left lower extremity veins. COMPARISON: CT chest abdpel w/*[id number] 09/23/2024 11:34 PM FINDINGS: Left deep veins: Unremarkable. The common femoral, femoral, proximal profunda femoral and popliteal veins are patent without thrombus. Normal Doppler waveforms. Normal compressibility and/or augmentation response. Superficial veins: Greater saphenous vein at the saphenofemoral junction is patent without thrombus. Soft tissues: Unremarkable. US/CV venous duplex [facility] [id number] IMPRESSION: No evidence of deep vein thrombosis.
== END 2024-10-06 02:35 | disposition home or self-care (01) ==
PROVIDERS: Emergency Provider Nurse Practitioner
DX: M79.605 Pain in left leg (principal); R60.0 Localized edema; Z72.0 Tobacco use
CPT/HCPCS: 36415; 71045; 80053; 83880; 85007; 85027; 93971; 99284; J9999